=== PATIENT | male | born 1950 ===

== ENCOUNTER 2019-11-17 09:46 | Inpatient (IN) | payer BC, MEDICARE ==
[2019-11-17] VITALS (8 sets, daily range): BP systolic 124–144; BP diastolic 75–86; BMI 27.7
[~2019-11-17] VITALS: Ht 165.1 cm; Wt 75.3 kg
[2019-11-17 10:37] LABS: BASOPHILS 0.1 % (0-2); EOSINOPHILS 0.5 % (0-7); HEMATOCRIT 34.2 % (42.0-54.0); HEMOGLOBIN 11.2 g/dL (13.5-17.5); IMMATURE GRANULOCYTES 0.4 % (0-5); LYMPHOCYTES 5.9 % (15-50); MCH 29.6 pg (26.0-34.0); MCHC 32.7 g/dL (31.0-37.0); MCV 90.5 fL (80.0-100.0); MEAN PLATELET VOLUME 10.2 fL (7.4-10.4); MONOCYTES 9.2 % (2-11); NEUTROPHILS 83.9 % (40-80); PLATELET COUNT 267 10x3/uL (130-400); RBC 3.78 10x6/uL (4.20-6.10); WBC 7.5 10x3/uL (4.8-10.8)
[2019-11-17 10:38] LABS: APTT 34.1 SECONDS (22.8-39.4); INR 1.22 (0.85-1.17); PROTIME 15.3 SECONDS (11.6-15.0)
[2019-11-17 11:00] LABS: ALBUMIN 3.3 g/dL (3.4-5.0); ALKALINE PHOSPHATASE 102 U/L (30-120); ALT (SGPT) 28 U/L (10-68); BILIRUBIN - TOTAL 0.57 mg/dL (0.2-1.3); CALCIUM 8.4 mg/dL (8.5-10.1); CHLORIDE - SERUM 101 mmol/L (98-107); CKMB 10.7 U/L (0.0-3.6); CREATINE KINASE 222 UL (21-232); CREATININE - SERUM 15.5 mg/dL (0.6-1.3); GLUCOSE 117 mg/dL (74-106); POTASSIUM - SERUM 4.5 mmol/L (3.5-5.1); PRO BNP 868 pg/mL (0-125); PROTEIN - SERUM 8.6 g/dL (6.4-8.2); SODIUM 132 mmol/L (136-145); TROPONIN-I 0.051 ng/mL (0.000-0.060); eGFR NON AFRICAN AMERICAN 3 mL/min (90-120)
[2019-11-17 11:03] LABS: CALC OSMOLALITY 333 mosm/kg (275-300)
[2019-11-17 11:05] LABS: CARBON DIOXIDE 9.2 mmol/L (21.0-32.0); UREA NITROGEN 202 mg/dL (7-18)
--- NOTE | 2019-11-17 11:32 | NUR ---
pt provided a urinal and informed that we needed to get a urine sample, pt states that he can not give a urine at this time, Dr. Reyez updated
--- NOTE | 2019-11-17 13:25 | NUR ---
1ST LITER OF LR COMPLETED AT THIS TIME
[2019-11-17 14:05] LABS: BILIRUBIN NEGATIVE (NEGATIVE); KETONE NEGATIVE (NEGATIVE); NITRITE NEGATIVE (NEGATIVE); UROBILINOGEN NORMAL mg/dL (< 2)
[2019-11-17 14:06] LABS: WHITE CELLS - URINE 25-50 HPF (0-1)
[2019-11-17 14:08] LABS: AMORPHOUS SEDIMENT <1+ /lpf (NONE SEEN); BACTERIA MANY /HPF (NONE SEEN); EPITHELIAL CELLS OCC /hpf (0-5)
--- NOTE | 2019-11-17 15:05 | NUR ---
2ND LITER OF LR COMPLETED AT THIS TIME
[2019-11-17 16:13] LABS: ALBUMIN 2.5 g/dL (3.4-5.0); BILIRUBIN - TOTAL 0.44 mg/dL (0.2-1.3); CALCIUM 7.7 mg/dL (8.5-10.1); CREATININE - SERUM 13.3 mg/dL (0.6-1.3); POTASSIUM - SERUM 4.2 mmol/L (3.5-5.1); PROTEIN - SERUM 6.6 g/dL (6.4-8.2)
[2019-11-17 16:29] LABS: CARBON DIOXIDE 9.2 mmol/L (21.0-32.0)
--- NOTE | 2019-11-17 16:30 | NUR ---
ARRIVE TO ROOM VIA BED FROM ER. ALERT AND ORIENTED X4. CARLOS DRAINING BY GRAVITY. VITALS STABLE. SINUS TACH ON TELEMETRY. ARRIVES TO ROOM. CONTINUE ADMISSION PROCESS AND SAFETY PRECAUTIONS. SCDs ON.
--- NOTE | 2019-11-17 20:00 | NUR ---
REPORT RECEIVED, WILL CONT POC. PT A&O, UP IN BED RESTING. NO S/S OF DISTRESS OBSERVED. RR EVEN & UNLABORED AND O2 SAT 97% ON 2L VIA NC. PT REQUESTS WATER AND JELLO, BROUGHT TO BEDSIDE. PT DENIES FURTER NEEDS AT THIS TIME. BED LOCKED AND LOWERED, CALL LIGHT IN REACH. INSTRUCTED PT TO CALL NURSES STATION IF PT FEELS SOB OR HAS DIFFICULTY BREATHING. WROTE NURSES STATION NUMBER ON BOARD. VERIFIED PTS UNDERSTANDING OF SYMPTOMS TO REPORT VIA TEACHBACK METHOD. ASSESSMENT COMPLETED AT THIS TIME. WILL CONT TO MONITOR.
[2019-11-17 21:59] LABS: CALCIUM 7.6 mg/dL (8.5-10.1); CREATININE - SERUM 12.7 mg/dL (0.6-1.3)
[2019-11-17 22:03] LABS: ANION GAP 20.8 mmol/L (8-16); CARBON DIOXIDE 15.5 mmol/L (21.0-32.0); POTASSIUM - SERUM 3.3 mmol/L (3.5-5.1)
[2019-11-18] VITALS (13 sets, daily range): BP systolic 127–148; BP diastolic 79–100; Ht 165.1 cm; Wt 75.3 kg
[2019-11-18 03:09] LABS: BASOPHILS 0.2 % (0-2); EOSINOPHILS 0.6 % (0-7); HEMATOCRIT 28.8 % (42.0-54.0); HEMOGLOBIN 9.9 g/dL (13.5-17.5); IMMATURE GRANULOCYTES 0.4 % (0-5); LYMPHOCYTES 11.2 % (15-50); MCH 30.1 pg (26.0-34.0); MCHC 34.4 g/dL (31.0-37.0); MCV 87.5 fL (80.0-100.0); MEAN PLATELET VOLUME 9.6 fL (7.4-10.4); MONOCYTES 12.6 % (2-11); PLATELET COUNT 210 10x3/uL (130-400); RBC 3.29 10x6/uL (4.20-6.10); RDW 12.7 % (11.5-14.5); WBC 5.3 10x3/uL (4.8-10.8)
[2019-11-18 03:49] LABS: CALC OSMOLALITY 334 mosm/kg (275-300); CALCIUM 7.5 mg/dL (8.5-10.1); CARBON DIOXIDE 17.1 mmol/L (21.0-32.0); CHLORIDE - SERUM 105 mmol/L (98-107); CKMB 8.6 U/L (0.0-3.6); CREATINE KINASE 219 UL (21-232); CREATININE - SERUM 12.2 mg/dL (0.6-1.3); FERRITIN 1615 ng/mL (3-244); GLUCOSE 128 mg/dL (74-106); LDH 200 U/L (85-227); MAGNESIUM - SERUM 1.7 mg/dL (1.8-2.4); PHOSPHOROUS 7.3 mg/dL (2.5-4.9); POTASSIUM - SERUM 3.1 mmol/L (3.5-5.1); SODIUM 137 mmol/L (136-145); TROPONIN-I 0.057 ng/mL (0.000-0.060); eGFR NON AFRICAN AMERICAN 4 mL/min (90-120)
[2019-11-18 03:50] LABS: UREA NITROGEN 178 mg/dL (7-18)
--- NOTE | 2019-11-18 07:00 | NUR ---
PT REPORT RECEIVED FROM FINISHED METAL REPAIRER NURSE. NO ACUTE SIGNS OF DISTRESS NOTED. SHIFT ASSESSMENT COMPLETED. WILL CONTINUE TO MONITOR
--- NOTE | 2019-11-18 09:15 | NUR ---
DR BRANHAM AT BEDSIDE PLACING TRIALYSIS CATHETER.
--- NOTE | 2019-11-18 19:00 | NUR ---
REPORT RECEIVED. PT SITTING IN BED, NO ACUTE DISTRESS NOTED. PT ON 3L NC, ASSESSMENT COMPLETED, SEE FLOWSHEET. RT TRIALYSIS IJ INFUSING, SEE IV FLOWSHEET. WILL CONTINUE TO MONITOR.
[2019-11-19] VITALS (20 sets, daily range): BP systolic 119–154; BP diastolic 73–95
[2019-11-19 06:03] LABS: BASOPHILS 0 % (0-2); EOSINOPHILS 0.1 % (0-7); HEMATOCRIT 27.4 % (42.0-54.0); HEMOGLOBIN 9.1 g/dL (13.5-17.5); IMMATURE GRANULOCYTES 0.3 % (0-5); LYMPHOCYTES 13.4 % (15-50); MCH 29.5 pg (26.0-34.0); MCHC 33.2 g/dL (31.0-37.0); MEAN PLATELET VOLUME 10.3 fL (7.4-10.4); MONOCYTES 4.2 % (2-11); PLATELET COUNT 174 10x3/uL (130-400); RBC 3.08 10x6/uL (4.20-6.10); RDW 12.4 % (11.5-14.5)
[2019-11-19 06:25] LABS: WBC 7.2 10x3/uL (4.8-10.8)
[2019-11-19 06:52] LABS: ALBUMIN 2.6 g/dL (3.4-5.0); BILIRUBIN - TOTAL 0.52 mg/dL (0.2-1.3); CALCIUM 7.2 mg/dL (8.5-10.1); MAGNESIUM - SERUM 1.7 mg/dL (1.8-2.4); PROTEIN - SERUM 6.8 g/dL (6.4-8.2)
[2019-11-19 06:54] LABS: CARBON DIOXIDE 33.6 mmol/L (21.0-32.0); CREATININE - SERUM 6.5 mg/dL (0.6-1.3); PHOSPHOROUS 4.1 mg/dL (2.5-4.9)
[2019-11-19 06:56] LABS: POTASSIUM - SERUM 2.6 mmol/L (3.5-5.1)
--- NOTE | 2019-11-19 07:38 | NUR ---
DR OTOOLE SPOKE WITH REGARDING LABS, NEW ORDERS RECEIVED.
[2019-11-19 09:00] LABS: CKMB 4.5 U/L (0.0-3.6); TROPONIN-I 0.039 ng/mL (0.000-0.060)
[2019-11-19 09:02] LABS: CREATINE KINASE 285 UL (21-232)
[2019-11-19 14:29] LABS: CKMB 4.1 U/L (0.0-3.6); CREATINE KINASE 261 UL (21-232); TROPONIN-I 0.038 ng/mL (0.000-0.060)
[2019-11-19 16:33] LABS: ANION GAP 7.7 mmol/L (8-16); CALCIUM 7.1 mg/dL (8.5-10.1); CARBON DIOXIDE 38.1 mmol/L (21.0-32.0); CREATININE - SERUM 6.3 mg/dL (0.6-1.3)
[2019-11-19 16:44] LABS: POTASSIUM - SERUM 2.8 mmol/L (3.5-5.1)
--- NOTE | 2019-11-19 21:52 | NUR ---
RECEIVED REPORT FROM ONGOING NURSE. TRANSFER ORDER IN. PT XFERRED TO MED 2 [phone]
--- NOTE | 2019-11-19 22:31 | NUR ---
RECEIVED PATIENT TO ROOM 2140 VIA BED. PATIENT IS AAOX4, LYING IN SEMI-FOWLERS POSITION. TRIALYSIS TO RT IJ, PATENT, INFUSING LR @ 100ML/HR. NO S/S OF DISTRESS OBSERVED, RR EVEN AND UNLABORED ON 1L O2 VIA NC. F/C PATENT, DRAINING YELLOW URINE BY GRAVITY TO RT SIDE OF BED. PATIENT DENIES NEEDS AT THIS TIME. CL IN REACH, BED LOCKED AND LOWERED. COVID DROPET PRECAUTIONS MAINTAINED. WILL CTM.
[2019-11-20] VITALS: BP 122/83
[2019-11-20 04:00] VITALS: BP 131/80
--- NOTE | 2019-11-20 07:15 | NUR ---
RECEIVE SHIFT REPORT. RESTING IN BED WITH EYES CLOSED. NO SIGNS OF DISTRESS. WILL CONTINUE PLAN OF CARE AND SAFETY PRECAUTIONS. MONITOR PLACED AT DESK FOR SAFETY.
[2019-11-20 07:23] LABS: BASOPHILS 0.1 % (0-2); EOSINOPHILS 0.1 % (0-7); HEMATOCRIT 27.8 % (42.0-54.0); HEMOGLOBIN 8.8 g/dL (13.5-17.5); IMMATURE GRANULOCYTES 0.4 % (0-5); LYMPHOCYTES 11.4 % (15-50); MCH 29.5 pg (26.0-34.0); MCHC 31.7 g/dL (31.0-37.0); MEAN PLATELET VOLUME 10.2 fL (7.4-10.4); MONOCYTES 2.5 % (2-11); NEUTROPHILS 85.5 % (40-80); PLATELET COUNT 165 10x3/uL (130-400); RBC 2.98 10x6/uL (4.20-6.10); RDW 12.3 % (11.5-14.5)
[2019-11-20 07:38] LABS: MCV 93.3 fL (80.0-100.0); WBC 11.1 10x3/uL (4.8-10.8)
[2019-11-20 07:40] LABS: ALBUMIN 2.5 g/dL (3.4-5.0); ANION GAP 12.2 mmol/L (8-16); BILIRUBIN - TOTAL 0.38 mg/dL (0.2-1.3); CALCIUM 7.5 mg/dL (8.5-10.1); CARBON DIOXIDE 30.9 mmol/L (21.0-32.0); CREATININE - SERUM 6.1 mg/dL (0.6-1.3); PHOSPHOROUS 5.3 mg/dL (2.5-4.9); POTASSIUM - SERUM 3.1 mmol/L (3.5-5.1); PROTEIN - SERUM 6.6 g/dL (6.4-8.2)
[2019-11-20 08:29] VITALS: BP 125/79
[2019-11-20 09:13] LABS: HEPATITIS C ANTIBODY 0.2 S/CO RAT (0.0-0.9)
--- NOTE | 2019-11-20 12:41 | NUR ---
NUTRITION FOLLOW UP: COMMENTS: Patient interview deferred due to COVID-19. Patient has had a PO intake of 0% for 3 meals recorded. Patient has been experiencing a poor appetite and decreased sense of taste and smell per MD note. DIET: Renal Diet PO INTAKE: 0% x 3 meals WEIGHT: 11/17- 166 lbs BM: None since admit SIG MEDS: Zinc Sulfate, Pepcid, Lovenox, Vit D, Vit C, Zofran, LR @ 100 ml/hr SIG LABS: K-3.1(L), GFR-10(L), BUN-67(H), Cr-6.1(H), Calcium-7.5(L), Phos-5.3(H), Albumin-2.5(L), Vit D-12.9(L), RECOMMENDATIONS: Continue Renal Diet as tolerated Encourage PO Intake Assistance with meals as needed Frequent breaks during meals if difficulty breathing RD to continue to monitor and follow patient DHS
[2019-11-20 17:15] VITALS: BP 124/81
--- NOTE | 2019-11-20 19:30 | NUR ---
PT IN BED, AAO X 3, RESP EVEN AND UNLABORED, NO DISTRESS NOTED, CL IN REACH, SR UP X 2.
[2019-11-20 20:34] VITALS: BP 132/89
--- NOTE | 2019-11-21 04:06 | NUR ---
I have reviewed this patient and I concur with the Shift Assessment completed by the Licensed Practical Nurse today this shift.
[2019-11-21 07:06] LABS: BASOPHILS 0 % (0-2); EOSINOPHILS 0.2 % (0-7); HEMATOCRIT 29.9 % (42.0-54.0); HEMOGLOBIN 9.1 g/dL (13.5-17.5); IMMATURE GRANULOCYTES 0.4 % (0-5); LYMPHOCYTES 5.6 % (15-50); MCH 29.4 pg (26.0-34.0); MCHC 30.4 g/dL (31.0-37.0); MEAN PLATELET VOLUME 10.5 fL (7.4-10.4); MONOCYTES 8.7 % (2-11); NEUTROPHILS 85.1 % (40-80); RDW 12.4 % (11.5-14.5); WBC 13.7 10x3/uL (4.8-10.8)
[2019-11-21 07:10] LABS: MCV 96.5 fL (80.0-100.0); PLATELET COUNT 199 10x3/uL (130-400)
[2019-11-21 07:17] LABS: ANION GAP 12.5 mmol/L (8-16); CALCIUM 7.9 mg/dL (8.5-10.1); CARBON DIOXIDE 28.8 mmol/L (21.0-32.0); CREATININE - SERUM 6.1 mg/dL (0.6-1.3); MAGNESIUM - SERUM 1.8 mg/dL (1.8-2.4); PHOSPHOROUS 5.6 mg/dL (2.5-4.9); POTASSIUM - SERUM 3.3 mmol/L (3.5-5.1)
[2019-11-21 08:50] VITALS: BP 136/82
[2019-11-21 09:53] LABS: BILIRUBIN NEGATIVE (NEGATIVE); KETONE NEGATIVE (NEGATIVE); NITRITE NEGATIVE (NEGATIVE); UROBILINOGEN NORMAL mg/dL (< 2)
[2019-11-21 09:54] LABS: BACTERIA MODERATE HPF (NONE SEEN); WHITE CELLS - URINE 0-5 HPF (0-1)
[2019-11-21 09:55] LABS: AMORPHOUS SEDIMENT <1+ /lpf (NONE SEEN)
--- NOTE | 2019-11-21 10:55 | NUR ---
PT AWAKE AND ORIENTED, EASILY FALLS BACK TO SLEEP. NO COMPLAINTS OR CONCERNS, TOOK MEDIATIONS WITHOUT COMPLCIATIONS. CL NREACH, SRX2.
[2019-11-21 11:14] VITALS: BP 120/80
--- NOTE | 2019-11-21 17:13 | NUR ---
I have reviewed this patient and I concur with the Shift Assessment completed by the Licensed Practical Nurse today this shift.
[2019-11-21 17:34] VITALS: BP 123/84
[2019-11-21 20:50] VITALS: BP 113/82
[2019-11-22 00:50] VITALS: BP 113/75
[2019-11-22 04:36] VITALS: BP 107/69
[2019-11-22 07:08] LABS: ANION GAP 9.2 mmol/L (8-16); CALCIUM 7.5 mg/dL (8.5-10.1); CARBON DIOXIDE 27.8 mmol/L (21.0-32.0); MAGNESIUM - SERUM 1.6 mg/dL (1.8-2.4); PHOSPHOROUS 4.6 mg/dL (2.5-4.9)
[2019-11-22 07:11] LABS: CREATININE - SERUM 4.4 mg/dL (0.6-1.3)
[2019-11-22 07:40] LABS: BASOPHILS 0 % (0-2); EOSINOPHILS 3.8 % (0-7); HEMATOCRIT 27.8 % (42.0-54.0); HEMOGLOBIN 8.6 g/dL (13.5-17.5); IMMATURE GRANULOCYTES 0.5 % (0-5); LYMPHOCYTES 8.4 % (15-50); MCH 29.9 pg (26.0-34.0); MCHC 30.9 g/dL (31.0-37.0); MCV 96.5 fL (80.0-100.0); MEAN PLATELET VOLUME 10.5 fL (7.4-10.4); MONOCYTES 10.4 % (2-11); NEUTROPHILS 76.9 % (40-80); PLATELET COUNT 148 10x3/uL (130-400); RBC 2.88 10x6/uL (4.20-6.10); RDW 12.2 % (11.5-14.5); WBC 10.9 10x3/uL (4.8-10.8)
[2019-11-22 09:11] VITALS: BP 111/75
[2019-11-22 10:57] VITALS: BP 125/84
--- NOTE | 2019-11-22 18:13 | NUR ---
PT AWAKE AND ORIENTED THROUGHOUT DAY. NOTED LESS LETHARGY THAN PREVIUOS DAYS. INCREASED APPITITE. 800ML OUT IN CARLOS. ABLE TO MOVE SELF UP AND DOWN IN BED WIHTOUT TOO MUCH DIFFICULTY. COLLECTED SECOND COVID SWAB. PT REFUSED TO TAKE OFF 1L, THOUGH HE CAN TOLERATE ROOM AIR WITHOUT DSATING. WILL CNT. TO MONITOR. CL IN REACH, SRX2.
[2019-11-22 20:30] VITALS: BP 121/65
--- NOTE | 2019-11-22 20:30 | NUR ---
PT IN BED, AAO X 3, RESP EVEN AND UNLABORED, NO DISTRESS NOTED, CL IN REACH, SR UP X 2.
[2019-11-23 06:33] LABS: CALCIUM 7.7 mg/dL (8.5-10.1); CARBON DIOXIDE 24.2 mmol/L (21.0-32.0); CREATININE - SERUM 4.8 mg/dL (0.6-1.3); MAGNESIUM - SERUM 1.6 mg/dL (1.8-2.4); PHOSPHOROUS 4.4 mg/dL (2.5-4.9); POTASSIUM - SERUM 3.2 mmol/L (3.5-5.1)
[2019-11-23 06:50] LABS: BASOPHILS 0.1 % (0-2); EOSINOPHILS 0.5 % (0-7); HEMATOCRIT 27.4 % (42.0-54.0); HEMOGLOBIN 8.5 g/dL (13.5-17.5); IMMATURE GRANULOCYTES 0.6 % (0-5); MCH 29.8 pg (26.0-34.0); MCV 96.1 fL (80.0-100.0); MEAN PLATELET VOLUME 10.4 fL (7.4-10.4); MONOCYTES 6.1 % (2-11); NEUTROPHILS 87.7 % (40-80); PLATELET COUNT 159 10x3/uL (130-400); RBC 2.85 10x6/uL (4.20-6.10)
[2019-11-23 06:55] LABS: WBC 16.3 10x3/uL (4.8-10.8)
[2019-11-23 08:05] LABS: % SATURATION 55 % (15-55); IRON 64 ug/dl (35-150); TOTAL IRON BIND CAPACITY 115 ug/dl (260-445)
[2019-11-23 08:06] LABS: UNSAT IRON BIND CAPACITY 51 ug/dl (150-375)
--- NOTE | 2019-11-23 09:25 | MORECARE ---
CASE MANAGEMENT DISCHARGE SUMMARY PATIENT: CARMEL MILLER UNIT: [id number] ADM DATE: 11/17/19 AGE: 69 : 52 SEX: M ROOM/BED: D.2140 AUTHOR: MONTRELLDOC PHYSICIAN: REFERRING PHYSICIAN: FRANCISCA MICHELLE MD DATE OF SERVICE: 11/23/19 Discharge Plan Patient Name: CARMEL MILLER Facility: [facility]:[place] : 1950 Planned Disposition: Home or Self Care Anticipated Discharge Date: Discharge Date: Expected LOS: Initial Reviewer: [email or web address] Initial Review Date: 11/20/2019 Generated: 11/23/19 10:25 am DCP- Discharge Planning Updated by [email or web address]: Camille Prather on 11/23/19 8:[address] Patient Name: CARMEL MILLER Admission Status: ER Accout number: [id number] Admission Date: 11-17-2019 : 1950 Admission Diagnosis:SEPSIS, UNSPECIFIED ORGANISM Attending: FRANCISCA MICHELLE Current LOS: 6 Anticipated DC Date: Planned Disposition: Home or Self Care Primary Insurance: BCTNLIFE Discharge Planning Comments: CM called pt room and spoke with patient to complete initial dc planning assessment. CM educated patient on the CM role and verbal consent given by patient to complete assessment. CM verified patient's address, phone number, and emergency contact phone numbers. Patient lives at home with family. At discharge patient plans to return home and feels this is a safe discharge. CM discussed availability of home health, rehab services, and medical equipment. The patient is currently on continuous oxygen and may need oxygen at discharge. Pt verbalized choice for [facility]. Patient denies other known discharge needs at this time. Transportation provider at discharge will be his . CM will continue to follow and will assist as needed with dc plans/needs. Dietary Worker: Camille Prather DCPIA - Discharge Planning Initial Assessment Updated by [email or web address]: Camille Prather on 11/23/19 8:57 am * Is the patient Alert and Oriented? Yes * How many steps to enter\exit or inside your home? 0/0 * PCP MIGUEL ANGEL * Pharmacy [facility] * Preadmission Environment Home with Family * ADLs Independent * List name and contact numbers for known caregivers / representatives who currently or will assist patient after discharge: HAMMAD [phone] RAMÓN DTR [phone] * Verbal permission to speak to the caregivers and representatives has been obtained from the patient. Yes * Community resources currently utilized None * Additional services required to return to the preadmission environment? Yes * Can the patient safely return to the preadmission environment? Yes * Has this patient been hospitalized within the prior 30 days at any hospital? No Patient Name: CARMEL MILLER Page [phone] at 0925 All edits/amendments must be made on the electronic document DICTATION DATE: 11/23/19924 LANDSCAPE ARTIST: JAJA 11/23/19924 RPT#: [id number] DC DATE: STATUS: ADM IN [facility] [address] [place] [address] END OF REPORT
--- NOTE | 2019-11-23 11:23 | NUR ---
PT AWAKE AND ORIENTED. COLLECTED STOOL SAMPLE. AMBULATED SELF TO BATHROOM USING CANE, STANDBY ASSIST. SOME WEAKNESS AND INSTABILITY NOTED, BUT PT WAS ABLE TO CORRECT HIMSELF. LARGE BM. BACK TO BED WITH SELF AMULATION. GOWN AND LINNENS CHANGED. TELEMTRY REPLACED. NO COMPLAINTS OR CONCERNS AT THIS TIME. TOOK ALL MEDICATIONS WITHOUT COMPLICATIONS. CL IN REACH, SRX2.
[2019-11-23 12:13] VITALS: BP 122/84
[2019-11-23 20:00] VITALS: BP 123/79
--- NOTE | 2019-11-23 20:42 | MORECARE ---
CASE MANAGEMENT DISCHARGE SUMMARY PATIENT: CARMEL MILLER UNIT: [id number] ADM DATE: 11/17/19 AGE: 69 : 52 SEX: M ROOM/BED: D.2140 AUTHOR: MONTRELLDOC PHYSICIAN: REFERRING PHYSICIAN: FRANCISCA MICHELLE MD DATE OF SERVICE: 11/23/19 Discharge Plan Patient Name: CARMEL MILLER Facility: [facility]:[place] : 1950 Planned Disposition: Home or Self Care Anticipated Discharge Date: Discharge Date: Expected LOS: Initial Reviewer: [email or web address] Initial Review Date: 11/20/2019 Generated: 11/23/19 9:42 pm DCP- Discharge Planning Updated by [email or web address]: Camille Prather on 11/23/19 8:[address] Patient Name: CARMEL MILLER Admission Status: ER Accout number: [id number] Admission Date: 11-17-2019 : 1950 Admission Diagnosis:SEPSIS, UNSPECIFIED ORGANISM Attending: FRANCISCA MICHELLE Current LOS: 6 Anticipated DC Date: Planned Disposition: Home or Self Care Primary Insurance: BCTNLIFE Discharge Planning Comments: CM called pt room and spoke with patient to complete initial dc planning assessment. CM educated patient on the CM role and verbal consent given by patient to complete assessment. CM verified patient's address, phone number, and emergency contact phone numbers. Patient lives at home with family. At discharge patient plans to return home and feels this is a safe discharge. CM discussed availability of home health, rehab services, and medical equipment. The patient is currently on continuous oxygen and may need oxygen at discharge. Pt verbalized choice for [facility]. Patient denies other known discharge needs at this time. Transportation provider at discharge will be his . CM will continue to follow and will assist as needed with dc plans/needs. Offal Worker: Camille Prather DCPIA - Discharge Planning Initial Assessment Updated by [email or web address]: Camille Prather on 11/23/19 8:39 pm * Is the patient Alert and Oriented? Yes * How many steps to enter\exit or inside your home? 0/0 * PCP MIGUEL ANGEL * Pharmacy [facility] * Preadmission Environment Home with Family * ADLs Independent * Equipment Cane * List name and contact numbers for known caregivers / representatives who currently or will assist patient after discharge: HAMMAD [phone] RAMÓN DTR [phone] * Verbal permission to speak to the caregivers and representatives has been obtained from the patient. Yes * Community resources currently utilized None * Additional services required to return to the preadmission environment? Yes * Can the patient safely return to the preadmission environment? Yes * Has this patient been hospitalized within the prior 30 days at any hospital? No Last DP export: 11/23/19 8:25 a Patient Name: CARMEL MILLER Page [phone] at 204 All edits/amendments must be made on the electronic document DICTATION DATE: 11/23/192041 STOCK ANALYST: JAJA 11/23/192041 RPT#: [id number] DC DATE: STATUS: ADM IN [facility] [address] [place] [address] END OF REPORT
--- NOTE | 2019-11-24 07:27 | NUR ---
LYING IN BED AWAKE, ALERT, REQUEST EXTRA BLANKET--TEMP 97.3 ORAL--X-TRA BLANKET GIVEN/REQUEST--TEMP ADJUSTED IN ROOM, DENIES ANY FURTHER NEEDS.
[2019-11-24 09:40] LABS: BASOPHILS 0.1 % (0-2); EOSINOPHILS 0.9 % (0-7); HEMATOCRIT 27.6 % (42.0-54.0); HEMOGLOBIN 8.5 g/dL (13.5-17.5); IMMATURE GRANULOCYTES 0.4 % (0-5); LYMPHOCYTES 6.3 % (15-50); MCH 29.4 pg (26.0-34.0); MCHC 30.8 g/dL (31.0-37.0); MCV 95.5 fL (80.0-100.0); MEAN PLATELET VOLUME 9.9 fL (7.4-10.4); MONOCYTES 4.1 % (2-11); NEUTROPHILS 88.2 % (40-80); PLATELET COUNT 146 10x3/uL (130-400); RBC 2.89 10x6/uL (4.20-6.10); RDW 12.1 % (11.5-14.5); WBC 16.2 10x3/uL (4.8-10.8)
[2019-11-24 09:53] LABS: ANION GAP 13.8 mmol/L (8-16); CALCIUM 7.6 mg/dL (8.5-10.1); CARBON DIOXIDE 21.1 mmol/L (21.0-32.0); CREATININE - SERUM 4.9 mg/dL (0.6-1.3); MAGNESIUM - SERUM 1.5 mg/dL (1.8-2.4); PHOSPHOROUS 4.2 mg/dL (2.5-4.9)
[2019-11-24 09:56] LABS: POTASSIUM - SERUM 2.9 mmol/L (3.5-5.1)
[2019-11-24 12:02] VITALS: BP 153/73
[2019-11-24 14:11] LABS: SPE - ALBUMIN 2.6 g/dL (2.9-4.4); SPE - ALPHA-1 GLOBULIN 0.2 g/dL (0.0-0.4); SPE - ALPHA-2 GLOBULIN 0.7 g/dL (0.4-1.0); SPE - BETA GLOBULIN 0.5 g/dL (0.7-1.3); SPE - GAMMA GLOBULIN 1.2 g/dL (0.4-1.8); SPE - M-SPIKE Not Observed g/dL (Not Observed); SPE - TOTAL PROTEIN 5.2 g/dL (6.0-8.5)
--- NOTE | 2019-11-24 14:47 | NUR ---
Nutrition Follow-up: Pt in droplet isolation; covid-19+. Chart reviewed. PO intake seems to be improving per PO records. Diet: Regular Wt: 166# (11/17) Labs reviewed Meds reviewed -Encourage PO intake and honor food preferences. -Offer nutrition supplements. -Monitor wt. -RD following.
[2019-11-24 16:41] VITALS: BP 114/72
--- NOTE | 2019-11-24 17:52 | NUR ---
AT APPROX 1600 PT'S CARLOS CATH DC'D/DR ORDER--10CC CLEAR LIQUID REMOVED FROM BULB--CARLOS CATH THEN DC'DE--PT TOLERATED WELL. PULL-UP PLACED ON PT--INSTRUCTED PT TO CALL FOR IF NEED ASSIST TO RESTROOM W/UNDERTANDING STATED. NO FURTHER NEEDS STATED AT THIS TIME
[2019-11-24 20:00] VITALS: BP 119/81
[2019-11-25] VITALS: BP 129/88
[2019-11-25 04:00] VITALS: BP 131/80
[2019-11-25 06:30] LABS: BASOPHILS 0.1 % (0-2); EOSINOPHILS 0.3 % (0-7); HEMATOCRIT 26.8 % (42.0-54.0); HEMOGLOBIN 8.3 g/dL (13.5-17.5); IMMATURE GRANULOCYTES 0.7 % (0-5); LYMPHOCYTES 5.2 % (15-50); MCV 96.8 fL (80.0-100.0); MEAN PLATELET VOLUME 10.4 fL (7.4-10.4); MONOCYTES 7.5 % (2-11); NEUTROPHILS 86.2 % (40-80); PLATELET COUNT 175 10x3/uL (130-400); RBC 2.77 10x6/uL (4.20-6.10); RDW 12.3 % (11.5-14.5); WBC 16.9 10x3/uL (4.8-10.8)
[2019-11-25 06:41] LABS: ANION GAP 17.4 mmol/L (8-16); CALCIUM 7.8 mg/dL (8.5-10.1); CARBON DIOXIDE 19.6 mmol/L (21.0-32.0); CREATININE - SERUM 4.7 mg/dL (0.6-1.3); PHOSPHOROUS 4.7 mg/dL (2.5-4.9)
[2019-11-25 06:43] LABS: MAGNESIUM - SERUM 2.1 mg/dL (1.8-2.4)
--- NOTE | 2019-11-25 07:29 | NUR ---
LYING IN BED AWAKE, ALERT, ORIENTED. GOWN BROUGHT TO ROOM/REQUEST--NEW BATTERIES PLACED IN CM. PT DENIES ANY FURTHER NEEDS AT THIS TIME.
[2019-11-25 10:00] VITALS: BP 135/86
[2019-11-25 11:39] VITALS: BP 133/79
--- NOTE | 2019-11-25 19:30 | NUR ---
PT IN BED, AAO X 3, PT RESP EVEN AND UNLABORED, NO DISTRESS NOTED, CL IN REACH, SR UP X 2.
[2019-11-25 20:00] VITALS: BP 118/80
[2019-11-26] VITALS: BP 125/85
[2019-11-26 04:00] VITALS: BP 149/93
[2019-11-26 04:47] LABS: BASOPHILS 0 % (0-2); EOSINOPHILS 0.3 % (0-7); HEMATOCRIT 26.9 % (42.0-54.0); HEMOGLOBIN 8.2 g/dL (13.5-17.5); IMMATURE GRANULOCYTES 0.7 % (0-5); LYMPHOCYTES 6.9 % (15-50); MCH 29.3 pg (26.0-34.0); MCHC 30.5 g/dL (31.0-37.0); MCV 96.1 fL (80.0-100.0); MEAN PLATELET VOLUME 10.4 fL (7.4-10.4); MONOCYTES 11.3 % (2-11); NEUTROPHILS 80.8 % (40-80); RDW 12.7 % (11.5-14.5); WBC 16.3 10x3/uL (4.8-10.8)
[2019-11-26 04:48] LABS: PLATELET COUNT 211 10x3/uL (130-400)
[2019-11-26 05:09] LABS: ANION GAP 15.2 mmol/L (8-16); CALCIUM 7.7 mg/dL (8.5-10.1); CARBON DIOXIDE 18.6 mmol/L (21.0-32.0); CREATININE - SERUM 5.3 mg/dL (0.6-1.3); MAGNESIUM - SERUM 1.8 mg/dL (1.8-2.4); PHOSPHOROUS 4.7 mg/dL (2.5-4.9)
[2019-11-26 05:10] LABS: POTASSIUM - SERUM 4.8 mmol/L (3.5-5.1)
[2019-11-26 07:12] VITALS: BP 142/86
--- NOTE | 2019-11-26 07:20 | NUR ---
Lying in bed awake, alert, oriented, denies any needs at this time. No distress noted.
[2019-11-26 10:48] VITALS: BP 109/70
--- NOTE | 2019-11-26 13:43 | NUR ---
Nutrition Follow-up: Pt in droplet isolation; covid-19+. Chart reviewed. MD reports good appetite. Diet: Regular Wt: 166# (11/17) Labs noted: Ca 7.7 Meds noted: folate, zinc sulfate, vitamin D, vitamin C, Pepcid, Florajen -Encourage PO intake and honor food preferences. -Need new wt if possible; noted daily wts ordered. -RD following.
[2019-11-26 15:37] VITALS: BP 128/78
--- NOTE | 2019-11-26 16:07 | NUR ---
16FR CARLOS CATH INSERTED W/1200CC'S CLEAR YELLOW URINE NOTED TO BAG AFTER INSERTION. PT TOLERATED ALL WELL.
--- NOTE | 2019-11-26 18:33 | NUR ---
1326 TODAY, GIANNI EVANS'D/V.O. DR MICHELLE
[2019-11-26 22:26] VITALS: BP 121/78
--- NOTE | 2019-11-26 23:49 | NUR ---
ASSUMED CARE OF PATIENT FROM PREVIOUS SHIFT. IN COVID DROPLET ISOLATION. GLASSES ON. CANE LAYING ON BED. CARLOS CATH PATENT WITH CLEAR YELLOW URINE. EMPTIED 1000 CC URINE. ON ROOM AIR. LUNGS CLEAR WHEN LISTENING TO THEM. RIGHT IJ TRIALYSIS WITH NURSE PORT SEEN WITH NS INFUSING AT 50 CC/HR. DRESSING IS CLEAN, DRY, INTACT. INSTURCTED TO USE CALL LIGHT FOR ANY NEEDS. STATES TO UNDERSTANDING.
--- NOTE | 2019-11-27 00:56 | NUR ---
IS GIVEN TO PATIENT AND INSTRUCTED IN USE. ABLE TO PREFORM X 5 WITH VOLUME AT 1000 ML. INSTRUCTED TO DO EVERY HOUR WHILE AWAKE. STATES TO UNDERSTANDING.
[2019-11-27 02:47] VITALS: BP 130/79
--- NOTE | 2019-11-27 03:25 | NUR ---
WATCHING TV, DENIES NEEDS WHEN ASKED. STILL DOING HIS IS AT 1000 ML.
[2019-11-27 06:15] VITALS: BP 135/88
--- NOTE | 2019-11-27 06:44 | NUR ---
AROUSES EASILY, DENIES NEEDS AT THIS TIME.
[2019-11-27 08:03] VITALS: BP 134/83
[2019-11-27 11:47] VITALS: BP 113/70
--- NOTE | 2019-11-27 14:53 | MORECARE ---
CASE MANAGEMENT DISCHARGE SUMMARY PATIENT: CARMEL MILLER UNIT: [id number] ADM DATE: 11/17/19 AGE: 69 : 52 SEX: M ROOM/BED: D.2140 AUTHOR: MONTRELLDOC PHYSICIAN: REFERRING PHYSICIAN: FRANCISCA MICHELLE MD DATE OF SERVICE: 11/27/19 Discharge Plan Patient Name: CARMEL MILLER Facility: [facility]:[place] : 1950 Planned Disposition: Home or Self Care Anticipated Discharge Date: Discharge Date: Expected LOS: Initial Reviewer: [email or web address] Initial Review Date: 11/20/2019 Generated: 11/27/19 3:52 pm DCP- Discharge Planning Updated by [email or web address]: Camille Prather on 11/23/19 8:[address] Patient Name: CARMEL MILLER Admission Status: ER Accout number: [id number] Admission Date: 11-17-2019 : 1950 Admission Diagnosis:SEPSIS, UNSPECIFIED ORGANISM Attending: FRANCISCA MICHELLE Current LOS: 6 Anticipated DC Date: Planned Disposition: Home or Self Care Primary Insurance: BCTNLIFE Discharge Planning Comments: CM called pt room and spoke with patient to complete initial dc planning assessment. CM educated patient on the CM role and verbal consent given by patient to complete assessment. CM verified patient's address, phone number, and emergency contact phone numbers. Patient lives at home with family. At discharge patient plans to return home and feels this is a safe discharge. CM discussed availability of home health, rehab services, and medical equipment. The patient is currently on continuous oxygen and may need oxygen at discharge. Pt verbalized choice for [facility]. Patient denies other known discharge needs at this time. Transportation provider at discharge will be his . CM will continue to follow and will assist as needed with dc plans/needs. Braille Translator: Camille Prather DCPIA - Discharge Planning Initial Assessment Updated by [email or web address]: Camille Prather on 11/23/19 8:39 pm * Is the patient Alert and Oriented? Yes * How many steps to enter\exit or inside your home? 0/0 * PCP MIGUEL ANGEL * Pharmacy [facility] * Preadmission Environment Home with Family * ADLs Independent * Equipment Cane * List name and contact numbers for known caregivers / representatives who currently or will assist patient after discharge: HAMMAD [phone] RAMÓN DTR [phone] * Verbal permission to speak to the caregivers and representatives has been obtained from the patient. Yes * Community resources currently utilized None * Additional services required to return to the preadmission environment? Yes * Can the patient safely return to the preadmission environment? Yes * Has this patient been hospitalized within the prior 30 days at any hospital? No Last DP export: 11/23/19 7:42 p Patient Name: CARMEL MILLER Page [id number] at 1453 All edits/amendments must be made on the electronic document DICTATION DATE: 11/27/191451 TEXTILE FINISHER: JAJA 11/27/191451 RPT#: [id number] DC DATE: STATUS: ADM IN [facility] [address] [place] [address] END OF REPORT
[2019-11-27 16:01] VITALS: BP 108/70
--- NOTE | 2019-11-27 17:43 | NUR ---
1530--ATTEMPTED TO DRAW BLOOD FROM TRIALYSIS PORT W/O SUCCESS/DR MICHELLE'S ORDERS--LAB CONTACTED FOR LAB DRAW AT THIS TIME.
[2019-11-27 18:01] LABS: BASOPHILS 0 % (0-2); EOSINOPHILS 0.2 % (0-7); HEMATOCRIT 27.1 % (42.0-54.0); HEMOGLOBIN 8.2 g/dL (13.5-17.5); IMMATURE GRANULOCYTES 1.6 % (0-5); MCH 29.7 pg (26.0-34.0); MCHC 30.3 g/dL (31.0-37.0); MEAN PLATELET VOLUME 9.7 fL (7.4-10.4); MONOCYTES 4.7 % (2-11); NEUTROPHILS 87.5 % (40-80); PLATELET COUNT 183 10x3/uL (130-400); RBC 2.76 10x6/uL (4.20-6.10); RDW 12.9 % (11.5-14.5)
[2019-11-27 18:08] LABS: MCV 98.2 fL (80.0-100.0); WBC 10.9 10x3/uL (4.8-10.8)
[2019-11-27 18:27] LABS: ANION GAP 15.2 mmol/L (8-16); CALCIUM 7.4 mg/dL (8.5-10.1); CARBON DIOXIDE 16.8 mmol/L (21.0-32.0); CREATININE - SERUM 5.1 mg/dL (0.6-1.3)
--- NOTE | 2019-11-27 19:00 | NUR ---
1855--DR MICHELLE CONTACTED THE [facility] ST[facility]--LAB LEVELS QUOTED TO DR MICHELLE-- V.O. TO FROM DR MICHELLE TO CONTACT DR WESTON REGARDING THIS PARTICULAR PT W/BUN AND CREAT LEVELS AND TO TELL DR WESTON THAT THE PT IS ADIMENT ABOUT GOING HOME. 1857--MESSAGE LEFT FOR DR WESTON TO CONTACT THIS HOSPITAL REGARDING THIS PT.
[2019-11-27 19:30] VITALS: BP 113/72
[2019-11-28] VITALS: BP 110/70
[2019-11-28 05:51] LABS: BASOPHILS 0 % (0-2); EOSINOPHILS 0.4 % (0-7); HEMOGLOBIN 7.7 g/dL (13.5-17.5); IMMATURE GRANULOCYTES 1.4 % (0-5); LYMPHOCYTES 9.2 % (15-50); MCH 29.8 pg (26.0-34.0); MCHC 30.8 g/dL (31.0-37.0); MCV 96.9 fL (80.0-100.0); MEAN PLATELET VOLUME 9.8 fL (7.4-10.4); MONOCYTES 12.1 % (2-11); NEUTROPHILS 76.9 % (40-80); PLATELET COUNT 187 10x3/uL (130-400); RBC 2.58 10x6/uL (4.20-6.10); WBC 12.4 10x3/uL (4.8-10.8)
[2019-11-28 06:17] LABS: ALBUMIN 2.2 g/dL (3.4-5.0); ANION GAP 15.5 mmol/L (8-16); BILIRUBIN - TOTAL 0.18 mg/dL (0.2-1.3); CALCIUM 7.9 mg/dL (8.5-10.1); CARBON DIOXIDE 17.2 mmol/L (21.0-32.0); POTASSIUM - SERUM 4.7 mmol/L (3.5-5.1); PROTEIN - SERUM 5.4 g/dL (6.4-8.2)
[2019-11-28 08:42] VITALS: BP 119/76
[2019-11-28 12:44] VITALS: BP 101/67
[2019-11-28 15:41] LABS: BILIRUBIN NEGATIVE (NEGATIVE); KETONE NEGATIVE (NEGATIVE); NITRITE NEGATIVE (NEGATIVE); UROBILINOGEN NORMAL mg/dL (< 2)
[2019-11-28 17:11] VITALS: BP 98/63
[2019-11-28 20:00] VITALS: BP 100/62
[2019-11-29] VITALS: BP 105/69
[2019-11-29 04:00] VITALS: BP 96/59
--- NOTE | 2019-11-29 06:07 | NUR ---
PT UP WITH ASST TO THE RESTROOM. NO VOICED C/O OR CONCERNS.
[2019-11-29 06:47] LABS: BASOPHILS 0.1 % (0-2); EOSINOPHILS 2.7 % (0-7); HEMATOCRIT 27.2 % (42.0-54.0); HEMOGLOBIN 8.1 g/dL (13.5-17.5); LYMPHOCYTES 12.7 % (15-50); MCHC 29.8 g/dL (31.0-37.0); MCV 97.5 fL (80.0-100.0); MEAN PLATELET VOLUME 9.7 fL (7.4-10.4); MONOCYTES 13.5 % (2-11); PLATELET COUNT 174 10x3/uL (130-400); RBC 2.79 10x6/uL (4.20-6.10); RDW 13.2 % (11.5-14.5); WBC 10.6 10x3/uL (4.8-10.8)
[2019-11-29 07:00] LABS: ANION GAP 19.1 mmol/L (8-16); CALCIUM 7.5 mg/dL (8.5-10.1); CARBON DIOXIDE 15.1 mmol/L (21.0-32.0); CREATININE - SERUM 5.6 mg/dL (0.6-1.3); POTASSIUM - SERUM 4.2 mmol/L (3.5-5.1)
--- NOTE | 2019-11-29 08:20 | NUR ---
AM MEDS GIVEN AT THIS TIME. PT A/O X4, RESP EVEN AND NONLABORED ON RA. RT IJ TRIALYSIS INFUSING 1/2NS AT 75CC/HR. CARLOS DRAINING DARK URINE TO GRAVITY. PT DENIES ANY NEEDS AT THIS TIME. CALL LIGHT IN REACH,NAD NOTED, WILL CONTINUE TO MONIOTR.
[2019-11-29 08:45] VITALS: BP 97/62
[2019-11-29 12:29] VITALS: BP 99/56
--- NOTE | 2019-11-29 14:45 | NUR ---
PT RESTING COMFORTABLY IN BED, WITH EYES CLOSED, NAD NOTED.
[2019-11-29 17:42] VITALS: BP 110/64
[2019-11-29 18:56] VITALS: BP 102/62
--- NOTE | 2019-11-29 21:07 | NUR ---
PT UP TO RESTROOM X1 ASSIT. NO S/S OF DISTRESS OBSERVED. NO NEEDS EXPRESSED. CALL LIGHT IN REACH. WILL CPOC.
[2019-11-30 03:54] VITALS: BP 104/67
[2019-11-30 08:09] LABS: BASOPHILS 0 % (0-2); EOSINOPHILS 2.8 % (0-7); HEMATOCRIT 22.9 % (42.0-54.0); IMMATURE GRANULOCYTES 1.3 % (0-5); LYMPHOCYTES 9.9 % (15-50); MCH 29.7 pg (26.0-34.0); MCHC 30.6 g/dL (31.0-37.0); MEAN PLATELET VOLUME 9.7 fL (7.4-10.4); PLATELET COUNT 179 10x3/uL (130-400); RBC 2.36 10x6/uL (4.20-6.10); RDW 13.7 % (11.5-14.5); WBC 10.8 10x3/uL (4.8-10.8)
[2019-11-30 08:12] VITALS: BP 121/74
[2019-11-30 08:22] LABS: ANION GAP 17.5 mmol/L (8-16); CALCIUM 7.6 mg/dL (8.5-10.1); CARBON DIOXIDE 15.6 mmol/L (21.0-32.0); CREATININE - SERUM 4.9 mg/dL (0.6-1.3); POTASSIUM - SERUM 4.1 mmol/L (3.5-5.1)
[2019-11-30 11:44] VITALS: BP 105/61
--- NOTE | 2019-11-30 12:35 | MORECARE ---
CASE MANAGEMENT DISCHARGE SUMMARY PATIENT: CARMEL MILLER UNIT: [id number] ADM DATE: 11/17/19 AGE: 69 : 52 SEX: M ROOM/BED: D.2140 AUTHOR: DEACON STOCK PHYSICIAN: REFERRING PHYSICIAN: FRANCISCA MICHELLE MD DATE OF SERVICE: 11/30/19 Discharge Plan Patient Name: CARMEL MILLER Facility: [facility]:[place] : 1950 Planned Disposition: Home or Self Care Anticipated Discharge Date: Discharge Date: Expected LOS: Initial Reviewer: [email or web address] Initial Review Date: 11/20/2019 Generated: 11/30/19 1:35 pm Comments DCP- Discharge Planning Updated by [email or web address]: Camille Berry on 11/30/19 11:[address] CM SPOKE WITH DR MENJIVAR ABOUT PT CONDITION, AND DR MICHELLE'S RECOMMENDATION FOR TRANSFER FOR UROLOGY. DR MENJIVAR CALLED DR WESTON WHO STATED TO HAVE PT TRANSFERED OUT. CM CALLED [facility] AT [phone] AND SPOKE WITH EARLY CHILDHOOD TEACHER ASSISTANT TERRIE STATES PT CAN TRANSFER THERE COVID POSITIVE AND CAN HAVE SURGERY WITH EXTRA PRECAUTIONS TAKEN. [facility] CALL DR MICHELLE FOR DOC TO DOC. CM CALLED PT IN ROOM TO UPDATE CONDITION AND ANSWERED QUESTIONS. YARN SALVAGER: CAMILLE BERRY MSN,RN,CM DCP- Discharge Planning Updated by [email or web address]: Camille Berry on 11/23/19 8:[address] Patient Name: CARMEL MILLER Admission Status: ER Accout number: [id number] Admission Date: 11-17-2019 : 1950 Admission Diagnosis:SEPSIS, UNSPECIFIED ORGANISM Attending: FRANCISCA MICHELLE Current LOS: 6 Anticipated DC Date: Planned Disposition: Home or Self Care Primary Insurance: BCTNLIFE Discharge Planning Comments: CM called pt room and spoke with patient to complete initial dc planning assessment. CM educated patient on the CM role and verbal consent given by patient to complete assessment. CM verified patient's address, phone number, and emergency contact phone numbers. Patient lives at home with family. At discharge patient plans to return home and feels this is a safe discharge. CM discussed availability of home health, rehab services, and medical equipment. The patient is currently on continuous oxygen and may need oxygen at discharge. Pt verbalized choice for [facility]. Patient denies other known discharge needs at this time. Transportation provider at discharge will be his . CM will continue to follow and will assist as needed with dc plans/needs. Spray Maker: Camille Berry DCPIA - Discharge Planning Initial Assessment Updated by [email or web address]: Camille Berry on 11/23/19 8:39 pm * Is the patient Alert and Oriented? Yes * How many steps to enter\exit or inside your home? 0/0 * PCP MIGUEL ANGEL * Pharmacy [facility] * Preadmission Environment Home with Family * ADLs Independent * Equipment Cane * List name and contact numbers for known caregivers / representatives who currently or will assist patient after discharge: HAMMAD [phone] RAMÓN DTR [phone] * Verbal permission to speak to the caregivers and representatives has been obtained from the patient. Yes * Community resources currently utilized None * Additional services required to return to the preadmission environment? Yes * Can the patient safely return to the preadmission environment? Yes * Has this patient been hospitalized within the prior 30 days at any hospital? No Last DP export: 11/27/19 1:53 p Patient Name: CARMEL MILLER Page [id number] at 1235 All edits/amendments must be made on the electronic document DICTATION DATE: 11/30/19 1235 TUNG NUT GROWER: JAJA 11/30/19 1235 RPT#: [id number] DC DATE: STATUS: ADM IN [facility] [address] [place] [address] END OF REPORT
--- NOTE | 2019-11-30 13:21 | MORECARE ---
CASE MANAGEMENT DISCHARGE SUMMARY PATIENT: CARMEL MILLER UNIT: [id number] ADM DATE: 11/17/19 AGE: 69 : 52 SEX: M ROOM/BED: D.2140 AUTHOR: DEACON STOCK PHYSICIAN: REFERRING PHYSICIAN: FRANCISCA MICHELLE MD DATE OF SERVICE: 11/30/19 Discharge Plan Patient Name: CARMEL MILLER Facility: [facility]:[place] : 1950 Planned Disposition: Home or Self Care Anticipated Discharge Date: Discharge Date: Expected LOS: Initial Reviewer: [email or web address] Initial Review Date: 11/20/2019 Generated: 11/30/19 2:20 pm Comments DCP- Discharge Planning Updated by [email or web address]: Camille Berry on 11/30/19 11:[address] CM SPOKE WITH DR MENJIVAR ABOUT PT CONDITION, AND DR MICHELLE'S RECOMMENDATION FOR TRANSFER FOR UROLOGY. DR MENJIVAR CALLED DR WESTON WHO STATED TO HAVE PT TRANSFERED OUT. CM CALLED [facility] AT [phone] AND SPOKE WITH RV REPAIRER TERRIE STATES PT CAN TRANSFER THERE COVID POSITIVE AND CAN HAVE SURGERY WITH EXTRA PRECAUTIONS TAKEN. HOSPITALIST WILL CALL DR MICHELLE FOR DOC TO DOC. CM CALLED PT IN ROOM TO UPDATE CONDITION AND ANSWERED QUESTIONS. HOSPITAL ADMISSIONS OFFICER: CAMILLE BERRY MSN,RN,CM DCP- Discharge Planning Updated by [email or web address]: Camille Berry on 11/23/19 8:[address] Patient Name: CARMEL MILLER Admission Status: ER Accout number: [id number] Admission Date: 11-17-2019 : 1950 Admission Diagnosis:SEPSIS, UNSPECIFIED ORGANISM Attending: FRANCISCA MICHELLE Current LOS: 6 Anticipated DC Date: Planned Disposition: Home or Self Care Primary Insurance: BCTNLIFE Discharge Planning Comments: CM called pt room and spoke with patient to complete initial dc planning assessment. CM educated patient on the CM role and verbal consent given by patient to complete assessment. CM verified patient's address, phone number, and emergency contact phone numbers. Patient lives at home with family. At discharge patient plans to return home and feels this is a safe discharge. CM discussed availability of home health, rehab services, and medical equipment. The patient is currently on continuous oxygen and may need oxygen at discharge. Pt verbalized choice for [facility]. Patient denies other known discharge needs at this time. Transportation provider at discharge will be his . CM will continue to follow and will assist as needed with dc plans/needs. Auction Block Clerk: Camille Berry DCPIA - Discharge Planning Initial Assessment Updated by [email or web address]: Camille Berry on 11/23/19 8:39 pm * Is the patient Alert and Oriented? Yes * How many steps to enter\exit or inside your home? 0/0 * PCP MIGUEL ANGEL * Pharmacy [facility] * Preadmission Environment Home with Family * ADLs Independent * Equipment Cane * List name and contact numbers for known caregivers / representatives who currently or will assist patient after discharge: HAMMAD [phone] RAMÓN DTR [phone] * Verbal permission to speak to the caregivers and representatives has been obtained from the patient. Yes * Community resources currently utilized None * Additional services required to return to the preadmission environment? Yes * Can the patient safely return to the preadmission environment? Yes * Has this patient been hospitalized within the prior 30 days at any hospital? No External Providers External Provider: OTHER-OTHER Next Contact Date: Service Request Date: Service Type: Resolution: Reviewer: Comments: Last DP export: 11/30/19 11:35 a Patient Name: CARMEL MILLER Page 99934 at 1321 All edits/amendments must be made on the electronic document DICTATION DATE: 11/30/19 1320 FENCE MANUFACTURE SUPERVISOR: JAJA 11/30/19 1320 RPT#: [id number] DC DATE: STATUS: ADM IN [facility] [address] [place] [address] END OF REPORT
--- NOTE | 2019-11-30 13:35 | MORECARE ---
CASE MANAGEMENT DISCHARGE SUMMARY PATIENT: CARMEL MILLER UNIT: [id number] ADM DATE: 11/17/19 AGE: 69 : 52 SEX: M ROOM/BED: D.2140 AUTHOR: DEACON STOCK PHYSICIAN: REFERRING PHYSICIAN: FRANCISCA MICHELLE MD DATE OF SERVICE: 11/30/19 Discharge Plan Patient Name: CARMEL MILLER Facility: [facility]:[place] : 1950 Planned Disposition: Home or Self Care Anticipated Discharge Date: Discharge Date: Expected LOS: Initial Reviewer: [id number] Initial Review Date: 11/20/2019 Generated: 11/30/19 2:35 pm Comments DCP- Discharge Planning Updated by [email or web address]: Camille Berry on 11/30/19 12:[address] CM called Cassandra at [facility] to see if pt can be transferred there for urology services. Cassandra states that she does not have urology coverage there this week and could not accept transfer. Camille Berry DCP- Discharge Planning Updated by [email or web address]: Camille Berry on 11/30/19 11:[address] CM SPOKE WITH DR MENJIVAR ABOUT PT CONDITION, AND DR MICHELLE'S RECOMMENDATION FOR TRANSFER FOR UROLOGY. DR MENJIVAR CALLED DR WESTON WHO STATED TO HAVE PT TRANSFERED OUT. CM CALLED [facility] AT [phone] AND SPOKE WITH FORMING YARDAGE CONTROL OPERATOR TERRIE STATES PT CAN TRANSFER THERE COVID POSITIVE AND CAN HAVE SURGERY WITH EXTRA PRECAUTIONS TAKEN. [facility] HOSPITALIST WILL CALL DR MICHELLE FOR DOC TO DOC. CM CALLED PT IN ROOM TO UPDATE CONDITION AND ANSWERED QUESTIONS. HAND MEXICAN FOOD MAKER: CAMILLE BERRY MSN,RN,CM DCP- Discharge Planning Updated by [email or web address]: Camille Berry on 11/23/19 8:[address] Patient Name: CARMEL MILLER Admission Status: ER Accout number: [id number] Admission Date: 11-17-2019 : 1950 Admission Diagnosis:SEPSIS, UNSPECIFIED ORGANISM Attending: FRANCISCA MICHELLE Current LOS: 6 Anticipated DC Date: Planned Disposition: Home or Self Care Primary Insurance: BCTNLIFE Discharge Planning Comments: CM called pt room and spoke with patient to complete initial dc planning assessment. CM educated patient on the CM role and verbal consent given by patient to complete assessment. CM verified patient's address, phone number, and emergency contact phone numbers. Patient lives at home with family. At discharge patient plans to return home and feels this is a safe discharge. CM discussed availability of home health, rehab services, and medical equipment. The patient is currently on continuous oxygen and may need oxygen at discharge. Pt verbalized choice for [facility]. Patient denies other known discharge needs at this time. Transportation provider at discharge will be his . CM will continue to follow and will assist as needed with dc plans/needs. Direct Service Provider: Camille Berry DCPIA - Discharge Planning Initial Assessment Updated by [email or web address]: Camille Berry on 11/23/19 8:39 pm * Is the patient Alert and Oriented? Yes * How many steps to enter\exit or inside your home? 0/0 * PCP MIGUEL ANGEL * Pharmacy [facility] * Preadmission Environment Home with Family * ADLs Independent * Equipment Cane * List name and contact numbers for known caregivers / representatives who currently or will assist patient after discharge: HAMMAD [phone] RAMÓN DTR [phone] * Verbal permission to speak to the caregivers and representatives has been obtained from the patient. Yes * Community resources currently utilized None * Additional services required to return to the preadmission environment? Yes * Can the patient safely return to the preadmission environment? Yes * Has this patient been hospitalized within the prior 30 days at any hospital? No Last DP export: 11/30/19 12:21 p Patient Name: CARMEL MILLER Page [id number] at 1335 All edits/amendments must be made on the electronic document DICTATION DATE: 11/30/19 1335 ENGINEERING LAB TECHNICIAN: JAJA 11/30/19 1335 RPT#: [id number] DC DATE: STATUS: ADM IN [facility] [address] [place] [address] END OF REPORT
--- NOTE | 2019-11-30 15:00 | NUR ---
DISCONNECTED PT SO HE COULD GO TO THE BATHROOM. ONCE PT WAS BACK IN BED, UNIT OF PRBCS HUNG. VITAL SIGNS STABLE. PT DENIES ANY NEEDS AT THIS TIME. CALL LIGHT IN REACH, NAD NOTED, WILL CONTINUE TO MONITOR.
--- NOTE | 2019-11-30 16:28 | MORECARE ---
CASE MANAGEMENT DISCHARGE SUMMARY PATIENT: CARMEL MILLER UNIT: [id number] ADM DATE: 11/17/19 AGE: 69 : 52 SEX: M ROOM/BED: D.2140 AUTHOR: MONTRELL,DOC PHYSICIAN: REFERRING PHYSICIAN: FRANCISCA MICHELLE MD DATE OF SERVICE: 11/30/19 Discharge Plan Patient Name: CARMEL MILLER Facility: [facility]:[place] : 1950 Planned Disposition: Home or Self Care Anticipated Discharge Date: Discharge Date: Expected LOS: Initial Reviewer: [email or web address] Initial Review Date: 11/20/2019 Generated: 11/30/19 5:27 pm Comments DCP- Discharge Planning Updated by [email or web address]: Camille Berry on 11/30/19 3:[address] CM received call from Camille Villa states that she spoke with Elsie at the Urology clinic who states Dr Villalpando is seeing pts and can transfer to [place]. CM called Elsie at Urology services at [phone]. CM spoke with Elsie and Dr. Villalpando via speaker phone. Elsie states he is in the clinic this week and not on hospital call. [facility] does not have urology coverage this week per Elsie at Urology clinic. CM updated condition, imaging, and history. Dr. Villalpando states to have the nurse remove the Montgomery and insert a coude. States if he continues to have hydro nephrosis then send him to [place] where he will see him. Updated condition with the nurse, Sujata. DCP- Discharge Planning Updated by [email or web address]: Camille Berry on 11/30/19 12:[address] CM called Cassandra at [facility] to see if pt can be transferred there for urology services. Cassandra states that she does not have urology coverage there this week and could not accept transfer. Camille Berry DCP- Discharge Planning Updated by [email or web address]: Camille Berry on 11/30/19 11:[address] CM SPOKE WITH DR MENJIVAR ABOUT PT CONDITION, AND DR MICHELLE'S RECOMMENDATION FOR TRANSFER FOR UROLOGY. DR MENJIVAR CALLED DR WESTON WHO STATED TO HAVE PT TRANSFERED OUT. CM CALLED [facility] AT [phone] AND SPOKE WITH HISTORY DEPARTMENT CHAIR TERRIE STATES PT CAN TRANSFER THERE COVID POSITIVE AND CAN HAVE SURGERY WITH EXTRA PRECAUTIONS TAKEN. [facility] HOSPITAL[facility] WILL CALL DR MICHELLE FOR DOC TO DOC. CM CALLED PT IN ROOM TO UPDATE CONDITION AND ANSWERED QUESTIONS. CORRECTIONAL OFFICER CAPTAIN: CAMILLE BERRY MSN,RN,CM DCP- Discharge Planning Updated by [email or web address]: Camille Berry on 11/23/19 8:[address] Patient Name: CARMEL MILLER Admission Status: ER Accout number: [id number] Admission Date: 11-17-2019 : 1950 Admission Diagnosis:SEPSIS, UNSPECIFIED ORGANISM Attending: FRANCISCA MICHELLE Current LOS: 6 Anticipated DC Date: Planned Disposition: Home or Self Care Primary Insurance: BCTNLIFE Discharge Planning Comments: CM called pt room and spoke with patient to complete initial dc planning assessment. CM educated patient on the CM role and verbal consent given by patient to complete assessment. CM verified patient's address, phone number, and emergency contact phone numbers. Patient lives at home with family. At discharge patient plans to return home and feels this is a safe discharge. CM discussed availability of home health, rehab services, and medical equipment. The patient is currently on continuous oxygen and may need oxygen at discharge. Pt verbalized choice for [facility]. Patient denies other known discharge needs at this time. Transportation provider at discharge will be his . CM will continue to follow and will assist as needed with dc plans/needs. Apartment House Manager: Camille Berry DCPIA - Discharge Planning Initial Assessment Updated by [id number]: Camille Berry on 11/23/19 8:39 pm * Is the patient Alert and Oriented? Yes * How many steps to enter\exit or inside your home? 0/0 * PCP MIGUEL ANGEL * Pharmacy [facility] * Preadmission Environment Home with Family * ADLs Independent * Equipment Cane * List name and contact numbers for known caregivers / representatives who currently or will assist patient after discharge: HAMMAD [phone] RAMÓN DTR [phone] * Verbal permission to speak to the caregivers and representatives has been obtained from the patient. Yes * Community resources currently utilized None * Additional services required to return to the preadmission environment? Yes * Can the patient safely return to the preadmission environment? Yes * Has this patient been hospitalized within the prior 30 days at any hospital? No Last DP export: 11/30/19 12:35 p Patient Name: CARMEL MILLER Page [id number] at 1628 All edits/amendments must be made on the electronic document DICTATION DATE: 11/30/191626 BOXING MACHINE OPERATOR: JAJA 11/30/191626 RPT#: [id number] DC DATE: STATUS: ADM IN [facility] [address] [place] [address] END OF REPORT
--- NOTE | 2019-11-30 16:48 | MORECARE ---
CASE MANAGEMENT DISCHARGE SUMMARY PATIENT: CARMEL MILLER UNIT: [id number] ADM DATE: 11/17/19 AGE: 69 : 52 SEX: M ROOM/BED: D.2140 AUTHOR: MONTRELL,DOC PHYSICIAN: REFERRING PHYSICIAN: FRANCISCA MICHELLE MD DATE OF SERVICE: 11/30/19 Discharge Plan Patient Name: CARMEL MILLER Facility: [facility]:[place] : 1950 Planned Disposition: Home or Self Care Anticipated Discharge Date: Discharge Date: Expected LOS: Initial Reviewer: [email or web address] Initial Review Date: 11/20/2019 Generated: 11/30/19 5:48 pm Comments DCP- Discharge Planning Updated by [email or web address]: Camille Berry on 11/30/19 3:[address] [facility] at [phone] about discontinuing transfer. Called 2 times, and was able to get ahold of her. Updated status of transfer. Camille Berry DCP- Discharge Planning Updated by [id number]: Camille Berry on 11/30/19 3:[address] CM received call from Camille Villa states that she spoke with Elsie at the Urology clinic who states Dr Villalpando is seeing pts and can transfer to [place]. CM called Elsie at Urology services at [phone]. CM spoke with Elsie and Dr. Villalpando via speaker phone. Elsie states he is in the clinic this week and not on hospital call. [facility] does not have urology coverage this week per Elsie at Urology clinic. CM updated condition, imaging, and history. Dr. Villalpando states to have the nurse remove the Montgomery and insert a coude. States if he continues to have hydro nephrosis then send him to [place] where he will see him. Updated condition with the nurse, Sujata. DCP- Discharge Planning Updated by [email or web address]: Camille Berry on 11/30/19 12:[address] CM called Cassandra at [facility] to see if pt can be transferred there for urology services. Cassandra states that she does not have urology coverage there this week and could not accept transfer. Camille Berry DCP- Discharge Planning Updated by [email or web address]: Camille Berry on 11/30/19 11:[address] CM SPOKE WITH DR MENJIVAR ABOUT PT CONDITION, AND DR MICHELLE'S RECOMMENDATION FOR TRANSFER FOR UROLOGY. DR MENJIVAR CALLED DR WESTON WHO STATED TO HAVE PT TRANSFERED OUT. CM CALLED [facility] AT [phone] AND SPOKE WITH DIP TANKER TERRIE STATES PT CAN TRANSFER THERE COVID POSITIVE AND CAN HAVE SURGERY WITH EXTRA PRECAUTIONS TAKEN. [facility] HOSPITALIST WILL CALL DR MICHELLE FOR DOC TO DOC. CM CALLED PT IN ROOM TO UPDATE CONDITION AND ANSWERED QUESTIONS. HEAVY EQUIPMENT MECHANIC: CAMILLE BERRY MSN,RN,CM DCP- Discharge Planning Updated by [email or web address]: Caimlle Brery on 11/23/19 8:[address] Patient Name: CARMEL MILLER Admission Status: ER Accout number: [id number] Admission Date: 11-17-2019 : 1950 Admission Diagnosis:SEPSIS, UNSPECIFIED ORGANISM Attending: FRANCISCA MICHELLE Current LOS: 6 Anticipated DC Date: Planned Disposition: Home or Self Care Primary Insurance: BCTNLIFE Discharge Planning Comments: CM called pt room and spoke with patient to complete initial dc planning assessment. CM educated patient on the CM role and verbal consent given by patient to complete assessment. CM verified patient's address, phone number, and emergency contact phone numbers. Patient lives at home with family. At discharge patient plans to return home and feels this is a safe discharge. CM discussed availability of home health, rehab services, and medical equipment. The patient is currently on continuous oxygen and may need oxygen at discharge. Pt verbalized choice for [facility]. Patient denies other known discharge needs at this time. Transportation provider at discharge will be his . CM will continue to follow and will assist as needed with dc plans/needs. Ticket Taker Ferryboat: Camille Berry DCPIA - Discharge Planning Initial Assessment Updated by [email or web address]: Camille Berry on 11/23/19 8:39 pm * Is the patient Alert and Oriented? Yes * How many steps to enter\exit or inside your home? 0/0 * PCP MIGUEL ANGEL * Pharmacy [facility] * Preadmission Environment Home with Family * ADLs Independent * Equipment Cane * List name and contact numbers for known caregivers / representatives who currently or will assist patient after discharge: HAMMAD [phone] RAMÓN DTR [phone] * Verbal permission to speak to the caregivers and representatives has been obtained from the patient. Yes * Community resources currently utilized None * Additional services required to return to the preadmission environment? Yes * Can the patient safely return to the preadmission environment? Yes * Has this patient been hospitalized within the prior 30 days at any hospital? No Last DP export: 11/30/19 3:28 p Patient Name: CARMEL MILLER Page [id number] at 1648 All edits/amendments must be made on the electronic document DICTATION DATE: 11/30/191647 TAPE STRINGER: JAJA 11/30/191647 RPT#: [id number] DC DATE: STATUS: ADM IN [facility] [address] [place] [address] END OF REPORT
--- NOTE | 2019-11-30 18:00 | NUR ---
CARLOS CATHETER REMOVED PER ORDER. APPROX 600ML URINE OUTPUT RECORDED. STATLOK REMOVED. 16FR COUDE CATHETER PLACED PER PROTOCOL AND 'S ORDERS. PT TOLERATED WELL. STAT VICTORIA PLACED. CATHETER IN PLACE. WILL CTM.
[2019-11-30 20:00] VITALS: BP 123/70
--- NOTE | 2019-11-30 22:16 | NUR ---
1931--LYING IN BED AWAKE, ALERT, ORIENTED, WATCHING TV, DENIES ANY NEEDS. NO DISTRESS NOTED.
--- NOTE | 2019-11-30 22:38 | NUR ---
OFFERED PT A SHOWER AND LINEN CHANGE--PT REFUSED-STATES "IM JUST TO TIRED RIGHT NOW FOR ALL THAT."
[2019-12-01] VITALS: BP 112/65
--- NOTE | 2019-12-01 00:16 | NUR ---
LYING IN BED W/EYES CLOSED, NO DISTRESS NOTED.
--- NOTE | 2019-12-01 02:59 | NUR ---
LYING IN BED AWAKE, ALERT, ORIENTED, WATCHING TV, NO DISTRESS NOTED.
[2019-12-01 04:00] VITALS: BP 109/64
[2019-12-01 05:05] LABS: BASOPHILS 0 % (0-2); EOSINOPHILS 4.2 % (0-7); HEMATOCRIT 25.3 % (42.0-54.0); HEMOGLOBIN 7.9 g/dL (13.5-17.5); IMMATURE GRANULOCYTES 1.3 % (0-5); LYMPHOCYTES 11.3 % (15-50); MCH 29.5 pg (26.0-34.0); MCHC 31.2 g/dL (31.0-37.0); MEAN PLATELET VOLUME 9.5 fL (7.4-10.4); MONOCYTES 12.2 % (2-11); PLATELET COUNT 158 10x3/uL (130-400); RBC 2.68 10x6/uL (4.20-6.10); RDW 14.4 % (11.5-14.5)
[2019-12-01 05:15] LABS: MCV 94.4 fL (80.0-100.0)
[2019-12-01 05:25] LABS: ANION GAP 16.1 mmol/L (8-16); CALCIUM 7.2 mg/dL (8.5-10.1); CARBON DIOXIDE 16.1 mmol/L (21.0-32.0); CREATININE - SERUM 4.7 mg/dL (0.6-1.3); POTASSIUM - SERUM 4.2 mmol/L (3.5-5.1)
--- NOTE | 2019-12-01 05:46 | NUR ---
0429--LYING IN BED AWAKE, ALERT, ORIENTED, IVF TURNED OFF FOR 10 MINUTES THEN FLUSHED TRIALLYSIS NURSING PORT W/101CC'S NS AND WITHDREW 10CC'S BLOOD FOR WASTE--THEN WITHDREW 10CC'S BLOOD FOR AM LAB ORDERS--THEN TURNED IVF BACK ON--PT TOLERATED ALL WELL--DENIES ANY NEEDS AT THIS TIME.
--- NOTE | 2019-12-01 07:00 | NUR ---
RECEIVED REPORT. ASSUMED CARE OF PATIENT. PATIENT REMAINS IN ISOLATION FOR COVID 19.
--- NOTE | 2019-12-01 07:52 | NUR ---
HERE FOR ROUNDS. WANTS PATIENT TRANSFERRED THIS AM TO [facility] HE GAVE DISCHARGE ORDERS YESTERDAY. PATIENT TRANSFERRING FOR UROLOGY CARE. STATES TO TRANSFER PATIENT AND HE CAN RECIEVE ONE UNIT OF BLOOD AT [facility] IF NEPHROLOGY THINKS THAT PATIENT NEEDS IT HE RECIEVED ONE UNIT YESTERDAY PER NEPHROLOGY.
[2019-12-01 08:00] VITALS: BP 113/70
[2019-12-01 08:02] VITALS: BP 120/67
--- NOTE | 2019-12-01 08:46 | MORECARE ---
CASE MANAGEMENT DISCHARGE SUMMARY PATIENT: CARMEL MILLER UNIT: [id number] ADM DATE: 11/17/19 AGE: 69 : 54 SEX: M ROOM/BED: D.2140 AUTHOR: MONTRELLDOC PHYSICIAN: REFERRING PHYSICIAN: FRANCISCA VIRAMONTES MD DATE OF SERVICE: 12/01/19 Discharge Plan Patient Name: CARMEL MILLER Facility: [facility]:[place] : 1950 Planned Disposition: Home or Self Care Anticipated Discharge Date: Discharge Date: Expected LOS: Initial Reviewer: [email or web address] Initial Review Date: 11/20/2019 Generated: 12/01/19 9:46 am Comments DCP- Discharge Planning Updated by [id number]: Camille Berry on 12/01/19 7:[address] Patient Name: CARMEL MILLER Admission Status: ER Accout number: [id number] Admission Date: 11-17-2019 : 1950 Admission Diagnosis:SEPSIS, UNSPECIFIED ORGANISM Attending: FRANCISCA VIRAMONTES Current LOS: 14 Anticipated DC Date: Planned Disposition: Home or Self Care Primary Insurance: BCTNLIFE Discharge Planning Comments: CM spoke Dr Viramontes about transfer. Dr Viramontes stated to transfer the pt to [facility]. Stated he spoke with Dr Valadez, and urololgy and nephrology are expecting him. Cm called [facility] State Schoolwatch supervisor for [facility] at [phone] about transfer. Stated there is not a bed at this time, but should have one as soon as patients are discharged. Faxed transfer back agreement and provided contact information for return call. Medical Assistant Ob Gyn: Camille Berry DCP- Discharge Planning Updated by [email or web address]: Camille Berry on 11/30/19 3:[address] CM [facility] operator helper for [facility] at [phone] about discontinuing transfer. Called 2 times, and was able to get ahold of her. Updated status of transfer. Camille Berry DCP- Discharge Planning Updated by [email or web address]: Camille Berry on 11/30/19 3:[address] CM received call from Camille Villa states that she spoke with Elsie at the Urology clinic who states Dr Villalpando is seeing pts and can transfer to [place]. CM called Elsie at Urology services at [phone]. CM spoke with Elsie and Dr. Villalpando via speaker phone. Elsie states he is in the clinic this week and not on hospital call. [facility] does not have urology coverage this week per Elsie at Urology clinic. CM updated condition, imaging, and history. Dr. Villalpando states to have the nurse remove the Montgomery and insert a coude. States if he continues to have hydro nephrosis then send him to [place] where he will see him. Updated condition with the nurse, Sujata. DCP- Discharge Planning Updated by [email or web address]: Camille Berry on 11/30/19 12:[address] CM called Cassandra at [facility] to see if pt can be transferred there for urology services. Cassandra states that she does not have urology coverage there this week and could not accept transfer. Camille Berry DCP- Discharge Planning Updated by [email or web address]: Camille Berry on 11/30/19 11:[address] CM SPOKE WITH DR MENJIVAR ABOUT PT CONDITION, AND DR VIRAMONTES'S RECOMMENDATION FOR TRANSFER FOR UROLOGY. DR MENJIVAR CALLED DR WESTON WHO STATED TO HAVE PT TRANSFERED OUT. CM CALLED [facility] AT [phone] AND SPOKE WITH AIRCRAFT POWERTRAIN REPAIRER TERRIE STATES PT CAN TRANSFER THERE COVID POSITIVE AND CAN HAVE SURGERY WITH EXTRA PRECAUTIONS TAKEN. [facility] HOSPITALIST WILL CALL DR VIRAMONTES FOR DOC TO DOC. CM CALLED PT IN ROOM TO UPDATE CONDITION AND ANSWERED QUESTIONS. WORKING FOREMAN: CAMILLE BERRY MSN,RN,CM DCP- Discharge Planning Updated by [id number]: Camille Berry on 11/23/19 8:[address] Patient Name: CARMEL MILLER Admission Status: ER Accout number: [id number] Admission Date: 11-17-2019 : 1950 Admission Diagnosis:SEPSIS, UNSPECIFIED ORGANISM Attending: FRANCISCA VIRAMONTES Current LOS: 6 Anticipated DC Date: Planned Disposition: Home or Self Care Primary Insurance: BCTNLIFE Discharge Planning Comments: CM called pt room and spoke with patient to complete initial dc planning assessment. CM educated patient on the CM role and verbal consent given by patient to complete assessment. CM verified patient's address, phone number, and emergency contact phone numbers. Patient lives at home with family. At discharge patient plans to return home and feels this is a safe discharge. CM discussed availability of home health, rehab services, and medical equipment. The patient is currently on continuous oxygen and may need oxygen at discharge. Pt verbalized choice for [facility]. Patient denies other known discharge needs at this time. Transportation provider at discharge will be his . CM will continue to follow and will assist as needed with dc plans/needs. Medical Assistant Ob Gyn: Camille Berry DCPIA - Discharge Planning Initial Assessment Updated by [email or web address]: Camille Berry on 11/23/19 8:39 pm * Is the patient Alert and Oriented? Yes * How many steps to enter\exit or inside your home? 0/0 * PCP MIGUEL ANGEL * Pharmacy [facility] * Preadmission Environment Home with Family * ADLs Independent * Equipment Cane * List name and contact numbers for known caregivers / representatives who currently or will assist patient after discharge: HAMMAD [phone] RAMÓN DTR [phone] * Verbal permission to speak to the caregivers and representatives has been obtained from the patient. Yes * Community resources currently utilized None * Additional services required to return to the preadmission environment? Yes * Can the patient safely return to the preadmission environment? Yes * Has this patient been hospitalized within the prior 30 days at any hospital? No Last DP export: 11/30/19 3:48 p Patient Name: CARMEL MILLER Page 89955 at 0846 All edits/amendments must be made on the electronic document DICTATION DATE: 12/01/19845 EXTRUDER TENDER: JAJA 12/01/19845 RPT#: [id number] DC DATE: STATUS: ADM IN [facility] [address] [place] [address] END OF REPORT
--- NOTE | 2019-12-01 08:52 | NUR ---
SPOKE WITH PATIENT AND PATIENT CONFIRMS THAT HIS CARLOS CATHETER WAS CHANGED YESTERDAY AFTERNOON AND A COUDE WAS PLACED. URINE IS CLEAR YELLOW TO DRAINAGE BAG VIA GRAVITY.
--- NOTE | 2019-12-01 09:49 | OP ---
PATIENT NAME: CARMEL MILLER MEDICAL RECORD: [id number] :54 LOCATION:D.M2 D.2140 ADMISSION DATE:11/17/19 SURGEON: GRAHAM BRANHAM MD DATE OF OPERATION: 11/18/2019 PREOPERATIVE DIAGNOSES: 1. Acute renal failure. 2. Dehydration. 3. COVID-19 positive. POSTOPERATIVE DIAGNOSES: 1. Acute renal failure. 2. Dehydration. 3. COVID-19 positive. PROCEDURE: Right IJ 12.5 cm Trialysis catheter placement. SURGEON: Graham Branham MD REPORT OF PROCEDURE: The patient's right neck was prepped and draped in sterile fashion. A 5 cc of 1% lidocaine with epinephrine was infused into the surrounding tissues. Using ultrasound guidance, a needle was used to cannulate the right internal jugular vein and a guidewire was advanced with ease. Over this wire, a dilator was placed followed by the Trialysis catheter. The catheter aspirated nonpulsatile dark blood and flushed easily in all 3 ports. This was sutured into place with 3-0 nylons and dressed appropriately. COMPLICATIONS: None. CONDITION: Stable. ANESTHESIA: Local. BLOOD LOSS: Minimal. Procedure done in the ICU at the bedside. TRANSINT:[id number] Voice Confirmation ID: [id number] DOCUMENT ID: [id number] GRAHAM BRANHAM MD at 0949 CC: [id number] DICTATION DATE: 11/18/19 1321 DISABILITY MANAGER: 11/18/19 1622 ADM IN [place] [id number] [place] [address]
[2019-12-01 11:10] VITALS: BP 104/61
--- NOTE | 2019-12-01 12:51 | NUR ---
Nutrition Follow-up: Pt in droplet isolation; covid-19+. Chart reviewed. Eating well. Diet: Regular PO intake: 75-100% WT: 166# (11/17) Labs noted: Ca 7.2 Meds noted: Senokot, Florajen, Pepcid, folate, zinc sulfate, vit D, vit C, 1/2NS @ 125 -RD following.
--- NOTE | 2019-12-01 13:26 | NUR ---
DR MICHELLE'S NURSE, MINDI, ADVISED THAT PT TO BE TRANSFERRED TO [facility] ROOM 446. SHE WILL NOTIFY DR MICHELLE.
--- NOTE | 2019-12-01 13:33 | NUR ---
REPORT CALLED TO CARLY STEVENS CHARGE NURSE AT [phone]. PATIENT TO BE TRANSFERRED TO [facility] RM 446
--- NOTE | 2019-12-01 14:11 | NUR ---
CALLED [facility] TO REQUEST TRANSFER TO [facility].
--- NOTE | 2019-12-01 14:46 | MORECARE ---
CASE MANAGEMENT DISCHARGE SUMMARY PATIENT: CARMEL MILLER UNIT: [id number] ADM DATE: 11/17/19 AGE: 69 : 54 SEX: M ROOM/BED: D.2140 AUTHOR: MONTRELLDOC PHYSICIAN: REFERRING PHYSICIAN: FRANCISCA VIRAMONTES MD DATE OF SERVICE: 12/01/19 Discharge Plan Patient Name: CARMEL MILLER Facility: [facility]:[place] : 1950 Planned Disposition: Home or Self Care Anticipated Discharge Date: Discharge Date: Expected LOS: Initial Reviewer: [email or web address] Initial Review Date: 11/20/2019 Generated: 12/01/19 3:45 pm Comments DCP- Discharge Planning Updated by [email or web address]: Camille Berry on 12/01/19 1:[address] Patient Name: CARMEL MILLER Encounter No: [id number] : 1950 Primary Insurance: BCTNLIFE Anticipated DC Date: Planned Disposition: Home or Self Care External Planned Provider: : DCP follow-up note: CM received call from Tom at [facility]. States Dr Verduzco has accepted the patient. He will go to bed 446, and nursing can call report to [phone]. The pt will need to be transported by EMS. Patient and family in agreement with discharge plan. No changes to plan. Case management will follow and assist as needed. Camille Berry DCP- Discharge Planning Updated by [email or web address]: Camille Berry on 12/01/19 7:[address] Patient Name: CARMEL MILLER Admission Status: ER Accout number: [id number] Admission Date: 11-17-2019 : 1950 Admission Diagnosis:SEPSIS, UNSPECIFIED ORGANISM Attending: FRANCISCA VIRAMONTES Current LOS: 14 Anticipated DC Date: Planned Disposition: Home or Self Care Primary Insurance: BCTNLIFE Discharge Planning Comments: CM spoke Dr Viramontes about transfer. Dr Viramontes stated to transfer the pt to [facility]. Stated he spoke with Dr Valadez, and urololgy and nephrology are expecting him. [facility] at [phone] about transfer. Stated there is not a bed at this time, but should have one as soon as patients are discharged. Faxed transfer back agreement and provided contact information for return call. Securities Adviser: Camille Berry DCP- Discharge Planning Updated by [email or web address]: Camille Berry on 11/30/19 3:[address] CM [facility] floor for [facility] at [phone] about discontinuing transfer. Called 2 times, and was able to get ahold of her. Updated status of transfer. Camille Berry DCP- Discharge Planning Updated by [email or web address]: Camille Berry on 11/30/19 3:[address] CM received call from Camille Villa states that she spoke with Elsie at the Urology clinic who states Dr Villalpando is seeing pts and can transfer to [place]. CM called Elsie at Urology services at [phone]. CM spoke with Elsie and Dr. Villalpando via speaker phone. Elsie states he is in the clinic this week and not on hospital call. [facility] does not have urology coverage this week per Elsie at Urology clinic. CM updated condition, imaging, and history. Dr. Villalpando states to have the nurse remove the Montgomery and insert a coude. States if he continues to have hydro nephrosis then send him to [place] where he will see him. Updated condition with the nurse, Sujata. DCP- Discharge Planning Updated by [email or web address]: Camille Berry on 11/30/19 12:[address] CM called Cassandra at [facility] to see if pt can be transferred there for urology services. Cassandra states that she does not have urology coverage there this week and could not accept transfer. Camille Berry DCP- Discharge Planning Updated by [email or web address]: Camille Berry on 11/30/19 11:[address] CM SPOKE WITH DR MENJIVAR ABOUT PT CONDITION, AND DR VIRAMONTES'S RECOMMENDATION FOR TRANSFER FOR UROLOGY. DR MENJIVAR CALLED DR WESTON WHO STATED TO HAVE PT TRANSFERED OUT. GIANNI CALLED [facility] AT [phone] AND SPOKE WITH STONE GRADER TERRIE STATES PT CAN TRANSFER THERE COVID POSITIVE AND CAN HAVE SURGERY WITH EXTRA PRECAUTIONS TAKEN. [facility] HOSPITALIST WILL CALL DR VIRAMONTES FOR DOC TO DOC. CM CALLED PT IN ROOM TO UPDATE CONDITION AND ANSWERED QUESTIONS. CASH REGISTER BALANCER: CAMILLE BERRY MSN,RN,CM DCP- Discharge Planning Updated by [email or web address]: Camille Berry on 11/23/19 8:[address] Patient Name: CARMEL MILLER Admission Status: ER Accout number: [id number] Admission Date: 11-17-2019 : 1950 Admission Diagnosis:SEPSIS, UNSPECIFIED ORGANISM Attending: FRANCISCA VIRAMONTES Current LOS: 6 Anticipated DC Date: Planned Disposition: Home or Self Care Primary Insurance: [employer] Discharge Planning Comments: CM called pt room and spoke with patient to complete initial dc planning assessment. CM educated patient on the CM role and verbal consent given by patient to complete assessment. CM verified patient's address, phone number, and emergency contact phone numbers. Patient lives at home with family. At discharge patient plans to return home and feels this is a safe discharge. CM discussed availability of home health, rehab services, and medical equipment. The patient is currently on continuous oxygen and may need oxygen at discharge. Pt verbalized choice for [facility]. Patient denies other known discharge needs at this time. Transportation provider at discharge will be his . CM will continue to follow and will assist as needed with dc plans/needs. Securities Adviser: Camille Berry DCPIA - Discharge Planning Initial Assessment Updated by [email or web address]: Camille Berry on 11/23/19 8:39 pm * Is the patient Alert and Oriented? Yes * How many steps to enter\exit or inside your home? 0/0 * PCP MIGUEL ANGEL * Pharm[facility] * Preadmission Environment Home with Family * ADLs Independent * Equipment Cane * List name and contact numbers for known caregivers / representatives who currently or will assist patient after discharge: HAMMAD [phone] RAMÓN DTR [phone] * Verbal permission to speak to the caregivers and representatives has been obtained from the patient. Yes * Community resources currently utilized None * Additional services required to return to the preadmission environment? Yes * Can the patient safely return to the preadmission environment? Yes * Has this patient been hospitalized within the prior 30 days at any hospital? No Last DP export: 12/01/19 7:46 a Patient Name: CARMEL MILLER Page 99332 at 1446 All edits/amendments must be made on the electronic document DICTATION DATE: 12/01/191444 MARZIPAN MAKER: JAJA 12/01/191444 RPT#: [id number] DC DATE: STATUS: ADM IN [facility] [address] [place] [address] END OF REPORT
--- NOTE | 2019-12-01 15:24 | NUR ---
CONTINUE TO WAIT ARRIVAL OF [facility] FOR TRANSPORT. TOLERATING IV FLUIDS WELL. NO DISTRESS.
--- NOTE | 2019-12-01 15:49 | NUR ---
[facility] HERE TRANSPORT AT THIS TIME. NO DISTRESS UPON DISCHARGING TO [facility]. PATIENT LEFT WITH ALL PERSONAL BELONGINGS.
--- NOTE | 2019-12-02 10:15 | MORECARE ---
CASE MANAGEMENT DISCHARGE SUMMARY PATIENT: CARMEL MILLER UNIT: [id number] ADM DATE: 11/17/19 AGE: 69 : 54 SEX: M ROOM/BED: D.2140 AUTHOR: DEACON STOCK PHYSICIAN: REFERRING PHYSICIAN: FRANCISCA VIRAMONTES MD DATE OF SERVICE: 12/02/19 Discharge Plan Patient Name: CARMEL MILLER Facility: [facility]:[place] : 1950 Planned Disposition: Other Type of Facility Anticipated Discharge Date: 12/01/19 Discharge Date: 12/01/2019 Expected LOS: 14 Initial Reviewer: [email or web address] Initial Review Date: 11/20/2019 Generated: 12/02/19 11:14 am Comments DCP- Discharge Planning Updated by [email or web address]: Camille Berry on 12/01/19 1:[address] Patient Name: CARMEL MILLER Encounter No: [id number] : 1950 Primary Insurance: BCTNLIFE Anticipated DC Date: Planned Disposition: Home or Self Care External Planned Provider: : DCP follow-up note: CM received call from Tom at [facility]. States Dr Verduzco has accepted the patient. He will go to bed 446, and nursing can call report to [phone]. The pt will need to be transported by EMS. Patient and family in agreement with discharge plan. No changes to plan. Case management will follow and assist as needed. Camille Berry DCP- Discharge Planning Updated by [email or web address]: Camille Berry on 12/01/19 7:[address] Patient Name: CARMEL MILLER Admission Status: ER Accout number: [id number] Admission Date: 11-17-2019 : 1950 Admission Diagnosis:SEPSIS, UNSPECIFIED ORGANISM Attending: FRANCISCA VIRAMONTES Current LOS: 14 Anticipated DC Date: Planned Disposition: Home or Self Care Primary Insurance: BCTNLIFE Discharge Planning Comments: CM spoke Dr Viramontes about transfer. Dr Viramontes stated to transfer the pt to [facility]. Stated he spoke with Dr Valadez, and urololgy and nephrology are expecting him. Gianni called [facility] supervisor for [facility] at [phone] about transfer. Stated there is not a bed at this time, but should have one as soon as patients are discharged. Faxed transfer back agreement and provided contact information for return call. Airborne Mission Systems: Camille Berry DCP- Discharge Planning Updated by [email or web address]: Camille Berry on 11/30/19 3:[address] CM [facility] at [phone] about discontinuing transfer. Called 2 times, and was able to get ahold of her. Updated status of transfer. Camille Berry DCP- Discharge Planning Updated by [email or web address]: Camille Berry on 11/30/19 3:[address] CM received call from Camille Villa states that she spoke with Elsie at the Urology clinic who states Dr Villalpando is seeing pts and can transfer to [place]. GIANNI called Elsie at Urology services at [phone]. CM spoke with Elsie and Dr. Villalpando via speaker phone. Elsie states he is in the clinic this week and not on hospital call. [facility] does not have urology coverage this week per Elsie at Urology clinic. CM updated condition, imaging, and history. Dr. Villalpando states to have the nurse remove the Montgomery and insert a coude. States if he continues to have hydro nephrosis then send him to [place] where he will see him. Updated condition with the nurse, Sujata. DCP- Discharge Planning Updated by [email or web address]: Camille Berry on 11/30/19 12:[address] CM called Cassandra at [facility] to see if pt can be transferred there for urology services. Cassandra states that she does not have urology coverage there this week and could not accept transfer. Camille Berry DCP- Discharge Planning Updated by [email or web address]: Camille Berry on 11/30/19 11:[address] CM SPOKE WITH DR MENJIVAR ABOUT PT CONDITION, AND DR VIRAMONTES'S RECOMMENDATION FOR TRANSFER FOR UROLOGY. DR MENJIVAR CALLED DR WESTON WHO STATED TO HAVE PT TRANSFERED OUT. CM CALLED [facility] AT [phone] AND SPOKE WITH EMERGING TECHNOLOGIES DIRECTOR TERRIE STATES PT CAN TRANSFER THERE COVID POSITIVE AND CAN HAVE SURGERY WITH EXTRA PRECAUTIONS TAKEN. [facility] HOSPITALIST WILL CALL DR VIRAMONTES FOR DOC TO DOC. CM CALLED PT IN ROOM TO UPDATE CONDITION AND ANSWERED QUESTIONS. OPERATIONS VOCATIONAL INSTRUCTOR: CAMILLE BERRY MSN,RN,CM DCP- Discharge Planning Updated by [id number]: Camille Berry on 11/23/19 8:[address] Patient Name: CARMEL MILLER Admission Status: ER Accout number: [id number] Admission Date: 11-17-2019 : 1950 Admission Diagnosis:SEPSIS, UNSPECIFIED ORGANISM Attending: FRANCISCA VIRAMONTES Current LOS: 6 Anticipated DC Date: Planned Disposition: Home or Self Care Primary Insurance: [employer] Discharge Planning Comments: CM called pt room and spoke with patient to complete initial dc planning assessment. CM educated patient on the CM role and verbal consent given by patient to complete assessment. CM verified patient's address, phone number, and emergency contact phone numbers. Patient lives at home with family. At discharge patient plans to return home and feels this is a safe discharge. CM discussed availability of home health, rehab services, and medical equipment. The patient is currently on continuous oxygen and may need oxygen at discharge. Pt verbalized choice for [facility]. Patient denies other known discharge needs at this time. Transportation provider at discharge will be his . CM will continue to follow and will assist as needed with dc plans/needs. Airborne Mission Systems: Camille Berry DCPIA - Discharge Planning Initial Assessment Updated by [email or web address]: Camille Berry on 11/23/19 8:39 pm * Is the patient Alert and Oriented? Yes * How many steps to enter\exit or inside your home? 0/0 * PCP MIGUEL ANGEL * Pharmacy [facility] * Preadmission Environment Home with Family * ADLs Independent * Equipment Cane * List name and contact numbers for known caregivers / representatives who currently or will assist patient after discharge: HAMMAD [phone] RAMÓN DTR [phone] * Verbal permission to speak to the caregivers and representatives has been obtained from the patient. Yes * Community resources currently utilized None * Additional services required to return to the preadmission environment? Yes * Can the patient safely return to the preadmission environment? Yes * Has this patient been hospitalized within the prior 30 days at any hospital? No Last DP export: 12/01/19 1:46 p Patient Name: CARMEL MILLER Page 13119 at 1015 All edits/amendments must be made on the electronic document DICTATION DATE: 12/02/19 1014 LOSS PREVENTION AUDITOR: JAJA 12/02/19 1014 RPT#: [id number] DC DATE:12/01/19 STATUS: DIS IN [facility] [address] [place] [address] END OF REPORT
== END 2019-12-01 16:00 | disposition short-term general hospital (02) | DRG 871 ==
LOC: D.ER 09:46 → D.ICU 11:45 → D.M2 11:45 → D.ICU 13:28 → D.M2 16:00 → D.ICU 11-18 05:52 → D.M2 11-19 20:18
PROVIDERS: Family Medicine; Internal Medicine; Internal Medicine Nephrology; ADMIT Family Medicine; ATTEND Family Medicine
PROC: 05HM33Z Insertion of Infusion Device into Right Internal Jugular Vein, Percutaneous Approach (ICD-10-PCS; principal; 2019-11-18)
DX: A41.9 Sepsis, unspecified organism (principal); U07.1 COVID-19; G93.41 Metabolic encephalopathy; N17.0 Acute kidney failure with tubular necrosis; J18.9 Pneumonia, unspecified organism; E87.2 Acidosis; N39.0 Urinary tract infection, site not specified; N18.4 Chronic kidney disease, stage 4 (severe); E87.1 Hypo-osmolality and hyponatremia; N13.30 Unspecified hydronephrosis; E86.0 Dehydration; N40.0 Benign prostatic hyperplasia without lower urinary tract symptoms; R32 Unspecified urinary incontinence; J45.909 Unspecified asthma, uncomplicated; D64.9 Anemia, unspecified; E87.6 Hypokalemia; D63.1 Anemia in chronic kidney disease; E55.9 Vitamin D deficiency, unspecified; I12.9 Hypertensive chronic kidney disease with stage 1 through stage 4 chronic kidney disease, or unspecified chronic kidney disease; E87.8 Other disorders of electrolyte and fluid balance, not elsewhere classified; N13.9 Obstructive and reflux uropathy, unspecified; R26.9 Unspecified abnormalities of gait and mobility